=== PATIENT | male | born 1975 | race Hispanic/Latino ===

== ENCOUNTER 2017-10-22 16:41 | Emergency (ER) | payer SELFPAY ==
[2017-10-22 16:49] VITALS: BP 153/97
[2017-10-22] MEDS ORDERED: BOOSTRIX IM ONE ×2 (19:49→19:54)
[2017-10-22] MEDS ORDERED: AUGMENTIN 875 MG PO ONE (19:49)
[2017-10-22] MEDS ORDERED: NORCO 5/325 PO ONE (19:49)
[2017-10-22] MEDS ORDERED: AUGMENTIN 875 MG ONE (19:53)
[2017-10-22] MEDS ORDERED: NORCO 5/325 ONE (19:53)
[2017-10-22] MEDS ORDERED: NACL 0.9% 1000 ML IR ONE (19:56)
[2017-10-22] MEDS ORDERED: NACL 0.9% 0 ML IR ONE (20:09)
--- NOTE | 2017-10-22 20:23 | Emergency Department Report ---
ED Animal Bite HPI - General Chief Complaint: Animal Bite Stated Complaint: DOG BITE Time Seen by Provider: 10/22/17 19:54 Source: patient Mode of arrival: Ambulatory Limitations: No Limitations - History of Present Illness Initial Comments: Patient is a 42-year-old white male presents status post dog bite to left anterior forearm dog is known to patient all rabies shots are current patient states he did break up 2 dogs from fighting and was inadvertently bitten on the left inner forearm puncture wound 1 moderate bleeding controlled by direct pressure so applied prior to ED patient complains of 7/10 pain and aching there is no numbness no paralysis no tingling range of motion is intact wound is open no obvious deformity MD Complaint: animal bite Onset/Timin -: hour(s) Location: other (left forearm) Left: Forearm (anterior mid shaft ) Animal: dog Animal Control Notified: Yes Description: household pet Mechanism: bite Pain Description: sharp, constant Severity scale (0 -10): 5 Context: animals fighting Associated Symptoms: bleeding Treatments Prior to Arrival: wound dressing(s), irrigation (soap and water ) - Related Data Patient Tetanus UTD: No Previous Rx's Medication Instructions Recorded Last Taken Type Amoxicillin/Potassium Clav 1 each PO BID #20 tablet 10/22/17 Unknown Rx [Augmentin 875-125 Tablet] Bacitracin/Polymyxin B Sulfate 30 gm TP BID 14 Days #1 tube 10/22/17 Unknown Rx [Bacitracin-Polymyxin Ointment] traMADol [Ultram] 50 mg PO Q6HR PRN #15 tablet 10/22/17 Unknown Rx Allergies Allergy/AdvReac Type Severity Reaction Status Date / Time No Known Allergies Allergy Unverified 10/22/17 16:45 ED Review of Systems ROS: Stated complaint: DOG BITE Other details as noted in HPI Constitutional: denies: chills, fever Eyes: denies: eye pain, eye discharge, vision change ENT: denies: ear pain, throat pain Respiratory: denies: cough, shortness of breath, wheezing Cardiovascular: denies: chest pain, palpitations Endocrine: no symptoms reported Gastrointestinal: as per HPI Genitourinary: denies: urgency, dysuria Musculoskeletal: other (dog biter left forearm ) Skin: other (dog bite as above ). denies: rash, lesions Neurological: denies: headache, weakness, paresthesias Psychiatric: denies: anxiety, depression Hematological/Lymphatic: denies: easy bleeding, easy bruising ED Past Medical Hx - Past Medical History Previous Medical History?: No - Surgical History Past Surgical History?: No - Social History Smoking Status: Current Every Day Smoker Substance Use Type: None - Medications Home Medications: Home Medications Medication Instructions Recorded Confirmed Last Taken Type Amoxicillin/Potassium Clav 1 each PO BID #20 tablet 10/22/17 Unknown Rx [Augmentin 875-125 Tablet] Bacitracin/Polymyxin B Sulfate 30 gm TP BID 14 Days #1 tube 10/22/17 Unknown Rx [Bacitracin-Polymyxin Ointment] traMADol [Ultram] 50 mg PO Q6HR PRN #15 tablet 10/22/17 Unknown Rx ED Physical Exam - General Limitations: No Limitations General appearance: alert, in no apparent distress - Head Head exam: Present: atraumatic, normocephalic - Eye Eye exam: Present: normal appearance - ENT ENT exam: Present: mucous membranes moist - Neck Neck exam: Present: normal inspection - Respiratory Respiratory exam: Present: normal lung sounds bilaterally. Absent: respiratory distress, wheezes, stridor - Cardiovascular Cardiovascular Exam: Present: regular rate, normal rhythm, normal heart sounds. Absent: systolic murmur, diastolic murmur, rubs, gallop - GI/Abdominal GI/Abdominal exam: Present: soft, normal bowel sounds. Absent: tenderness - Rectal Rectal exam: Present: deferred - Extremities Exam Extremities exam: Present: full ROM, tenderness (left anterior forearm ), normal capillary refill. Absent: pedal edema, joint swelling - Expanded Upper Extremity Exam Left Forearm Wrist exam: Present: full ROM, tenderness (dog bite open approx 2 cm bleeding controlled, no obvious contamination no deformity distal pulse intact rom intact no nerve tendon or gross mucle damage open closed fist and pronation and supination directe confrontation neg snuff box neg pain with thumb axial loading no swelling ), laceration. Absent: deformity, crepidus, dislocation, erythema, tenderness over anatomical snuff box, pain with axial thumb loading Hand Wrist exam: Present: normal inspection, full ROM. Absent: tenderness, swelling, abrasion, laceration, ecchymosis, deformity, crepidus, dislocation, erythema, amputation, nail avulsion, subungual hematoma Neuro motor exam: Present: wrist extension intact, thumb opposition intact, thumb IP flexion intact, thumb adduction intact, fingers 2-5 abduction intact Neurosensory exam: Present: 2-point discrimination, radial nerve intact, ulnar nerve intact, median nerve intact Vascular: Present: normal capillary refill, radial pulse, brachial pulse, ulnar pulse. Absent: vascular compromise, Pallo, pulse deficit radial art, pulse deficit ulnar art, pulse deficit brachial art - Back Exam Back exam: Present: normal inspection - Neurological Exam Neurological exam: Present: alert, oriented X3, CN II-XII intact, normal gait, reflexes normal. Absent: motor sensory deficit - Psychiatric Psychiatric exam: Present: normal affect, normal mood - Skin Skin exam: Present: warm, dry, intact, normal color. Absent: rash ED Course Vital Signs 10/22/17 16:45 Temperature 98.0 F Pulse Rate 94 H Respiratory 16 Rate Blood Pressure 153/97 O2 Sat by Pulse 99 Oximetry - Reevaluation(s) Reevaluation #1: Irrigated copious open water via patient had bedside incision , wound irrigated with sterile saline and Betadine solution a provider there is n o obvious nerve tendon or gross muscle damage range of motion remains intact bleeding is controlled no obvious contamination director it equal 55 bilateral negative snuffbox negative, axial loading flexion and extension intact pronation and supination intact to direct confrontation PNEUMATIC TUBE FITTER is less than 3 seconds bilaterally patient given wound care instructions sterile dressing is applied patient treated with tetanus Lortab given Augmentin plan patient will follow-up with general surgery in 2-3 days for wound check and wound evaluation pt will perform daily dressing changes with bacitracin return to ED if symptoms worsen or symptoms of infection patient directed to take all of his antibiotics and pain medications as directed. left forearm xray no fracture no soft tissue abnormality 10/22/17 20:27 10/22/17 20:48 Critical care attestation.: If time is entered above; I have spent that time in minutes in the direct care of this critically ill patient, excluding procedure time. ED Disposition Clinical Impression: Dog bite Qualifiers: Encounter type: initial encounter Qualified Code(s): W54.0XXA - Bitten by dog, initial encounter Disposition: TO HOME OR SELFCARE Is pt being admited?: No Does the pt Need Aspirin: No Condition: Good Prescriptions: Amoxicillin/Potassium Clav [Augmentin 875-125 Tablet] 1 each PO BID #20 tablet Bacitracin/Polymyxin B Sulfate [Bacitracin-Polymyxin Ointment] 30 gm TP BID 14 Days #1 tube traMADol [Ultram] 50 mg PO Q6HR PRN #15 tablet PRN Reason: Pain Referrals: MARIANA LAGOS MD [Staff Physician] - 3-5 Days Forms: Work/School Release Form(ED) Time of Disposition: 20:49
--- NOTE | 2017-10-22 20:59 | XRay Report ---
FINAL REPORT PROCEDURE: XR FOREARM LT TECHNIQUE: Left forearm, two views HISTORY: dog bite deep COMPARISON: No prior studies are available for comparison. FINDINGS: No fracture or dislocation is seen. No focal osseous lesion. Soft tissue laceration is noted. IMPRESSION: No acute osseous abnormality is seen
== END 2017-10-22 20:59 | disposition home or self-care (01) ==
LOC: ED 16:41
DX: S51.852A Open bite of left forearm, initial encounter (principal); F17.200 Nicotine dependence, unspecified, uncomplicated; W54.0XXA Bitten by dog, initial encounter; Y93.89 Activity, other specified; Y92.89 Other specified places as the place of occurrence of the external cause; Y99.8 Other external cause status
CPT/HCPCS: 90471; 90715; 99283